=== PATIENT | male | born 1985 | race American Indian/Alaskan Native ===

== ENCOUNTER 2018-12-29 09:51 | Emergency (ER) | payer OTHER ==
[2018-12-29 09:58] VITALS: BP 181/93
--- NOTE | 2018-12-29 11:23 | Emergency Department Report ---
HPI - General Chief Complaint: Dental/Oral Time Seen by Provider: 12/29/18 11:20 - HPI HPI: This is a 33-year-old male patient complaining of dental pain and toothache located in the left side. Pain is 7-10 and achy. Denies any nausea or vomiting. Denies nasal congestion, cough, shortness of breath or chest pain. Denies any fever or chills. Denies any history of high blood pressure and his blood pressure is 183/93 and he reports because he is in pain. He states it is been taking [id number] Tylenol without any relief. Denies any cough. Denies any drainage or trauma. ED Past Medical Hx - Past Medical History Previous Medical History?: No - Surgical History Past Surgical History?: No - Family History Family history: hypertension - Social History Smoking Status: Never Smoker Substance Use Type: Marijuana - Medications Home Medications: Home Medications Medication Instructions Recorded Confirmed Last Taken Type Amoxicillin [Amoxicillin TAB] 875 mg PO BID 10 Days #20 tablet 12/29/18 Unknown Rx Ibuprofen [Motrin] 800 mg PO Q8HR PRN #12 tablet 12/29/18 Unknown Rx Neomy/Polymyx B/Hc (Otic) Soln 4 drops .ROUTE Q8H 7 Days #1 bottle 12/29/18 Unknown Rx [Cortisporin (Otic) Soln] ED Review of Systems ROS: Stated complaint: L EAR PAIN Other details as noted in HPI Constitutional: denies: chills, fever ENT: ear pain, dental pain. denies: throat pain, congestion Respiratory: denies: cough, shortness of breath, wheezing Gastrointestinal: denies: nausea, vomiting Musculoskeletal: denies: arthralgia Skin: denies: rash Neurological: denies: headache Physical Exam - Physical Exam Vital Signs: Vital Signs 12/29/18 09:55 Temperature 97.7 F Pulse Rate 83 Respiratory 18 Rate Blood Pressure 181/93 O2 Sat by Pulse 97 Oximetry General: This is a 33-year-old male well-nourished well-developed in no acute distress. Physical Exam: Head: Normocephalic atraumatic Ears:BIateral TM congested. Left EAC with redness and swollen. Left tragus tender to palpate. No mastoid bone tenderness. Mouth: Moist, no pharyngeal erythema or exudate . Tongue is normal and oral airways patent. Uvula is midline. No abscess noted but noted dental chu tooth #19 . Minimal tenderness to palpate around tooth #19 Lip is normal. Neck: Nontender to palpate, supple, normal range of motion. No adenopathy. No c- spine tenderness. Nose: Bilateral nasal mucosa normal exam maxillary and frontal sinuses non- tender to palpate. Eyes: Bilateral Sclerae and conjunctiva without injection. Bilateral pupils equal and reactive to light. Bilateral lids are normal. Normal accommodation.BEOMI Lungs: Clear to auscultate bilaterally, no rhonchi wheezes or rales. Normal work of breathing and no chest wall tenderness CV: S1, S2. Regular rate and rhythm negative murmur. Capillary refill is less than 3 seconds Extremity: No clubbing, cyanosis or edema. +2 pulses in all extremities and no neurovascular compromise Skin: Clean dry and intact, no rashes or lesions ED Course Vital Signs 12/29/18 09:55 Temperature 97.7 F Pulse Rate 83 Respiratory 18 Rate Blood Pressure 181/93 O2 Sat by Pulse 97 Oximetry Manual blood pressure is 142/84 - Reevaluation(s) Reevaluation #1: 12/29/18 12:22 Patient states throughout ED course ED Medical Decision Making - Medical Decision Making This is a 33-year-old male here for left toothache and left ear. He was signed to have otitis externa and toothache with dental caries. I will refer him to [facility] dental clinic and also cirrhosis outside [facility]. I discussed the patient's diagnosis and treatment plan and he voiced understanding. Patient discharged home on Corticosporin otic ,Motrin and amoxicillin. He stable and blood pressure is better. Critical care attestation.: If time is entered above; I have spent that time in minutes in the direct care of this critically ill patient, excluding procedure time. ED Disposition Clinical Impression: Tooth ache, Ear ache, Dental caries Otitis externa Qualifiers: Otitis externa type: unspecified type Chronicity: acute Laterality: left Qualified Code(s): H60.502 - Unspecified acute noninfective otitis externa, left ear Disposition: - TO HOME OR SELFCARE Is pt being admited?: No Does the pt Need Aspirin: No Condition: Stable Instructions: Dental Caries (ED), Otitis Externa (ED), Toothache (ED) Additional Instructions: follow up with dentist as instructed Take medication as prescribed Referrals: [facility] [Outside] - 3-5 Days [facility] [Outside] - 3-5 Days Forms: Work/School Release Form(ED)
== END 2018-12-29 11:30 | disposition home or self-care (01) ==
LOC: ED 09:51
DX: K02.9 Dental caries, unspecified (principal); H60.502 Unspecified acute noninfective otitis externa, left ear; F12.10 Cannabis abuse, uncomplicated
CPT/HCPCS: 99282

== ENCOUNTER 2020-07-16 11:51 | Emergency (ER) | payer SELFPAY ==
[2020-07-16 12:11] VITALS: BP 138/84
--- NOTE | 2020-07-16 12:45 | XRay Report ---
LEFT KNEE, AP AND LATERAL VIEWS INDICATION / CLINICAL INFORMATION: fall/injury. COMPARISON: None available. FINDINGS: BONES/JOINT(S): No acute fracture or subluxation. Small joint effusion noted. No focal bone lesions. SOFT TISSUES: No significant abnormality. ADDITIONAL FINDINGS: None. Signer Name: Kenn Martinez MD Signed: 07/16/2020 12:40 PM Workstation Name: [id number]
--- NOTE | 2020-07-16 13:59 | Emergency Department Report ---
ED General Adult HPI - General Chief complaint: Extremity Injury, Lower Stated complaint: POSS BROKEN LEG LEFT Time Seen by Provider: 07/16/20 13:25 Source: patient Mode of arrival: Ambulatory Limitations: No Limitations - History of Present Illness Initial comments: 35-year-old -[place] male patient presents with complaints of left knee pain after a slip and fall injury yesterday. 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 He rates his pain as a 10/10 in severity and states he has not been able to ambulate due to the pain. He denies any numbness/tingling/weakness in his limbs, redness, or penetrating injuries. - Related Data Previous Rx's Medication Instructions Recorded Last Taken Type Amoxicillin [Amoxicillin TAB] 875 mg PO BID 10 Days #20 tablet 12/29/18 Unknown Rx Ibuprofen [Motrin] 800 mg PO Q8HR PRN #12 tablet 12/29/18 Unknown Rx Neomy/Polymyx B/Hc (Otic) Soln 4 drops .ROUTE Q8H 7 Days #1 bottle 12/29/18 Unknown Rx [Cortisporin (Otic) Soln] Acetaminophen/Codeine [Tylenol 1 tab PO Q8H PRN #10 tab 07/16/20 Unknown Rx /Codeine # 3 tab] Diclofenac Sodium 50 mg PO TID PRN #21 tablet. 07/16/20 Unknown Rx Allergies Allergy/AdvReac Type Severity Reaction Status Date / Time No Known Allergies Allergy Unverified 12/29/18 09:53 ED Review of Systems ROS: Stated complaint: POSS BROKEN LEG LEFT Other details as noted in HPI Constitutional: denies: diaphoresis, fever, malaise Musculoskeletal: joint swelling, arthralgia Neurological: abnormal gait. denies: weakness, numbness, paresthesias Hematological/Lymphatic: denies: easy bleeding, easy bruising ED Past Medical Hx - Past Medical History Previous Medical History?: No - Surgical History Past Surgical History?: No - Social History Smoking Status: Current Every Day Smoker - Medications Home Medications: Home Medications Medication Instructions Recorded Confirmed Last Taken Type Amoxicillin [Amoxicillin TAB] 875 mg PO BID 10 Days #20 tablet 12/29/18 Unknown Rx Ibuprofen [Motrin] 800 mg PO Q8HR PRN #12 tablet 12/29/18 Unknown Rx Neomy/Polymyx B/Hc (Otic) Soln 4 drops .ROUTE Q8H 7 Days #1 bottle 12/29/18 Unknown Rx [Cortisporin (Otic) Soln] Acetaminophen/Codeine [Tylenol 1 tab PO Q8H PRN #10 tab 07/16/20 Unknown Rx /Codeine # 3 tab] Diclofenac Sodium 50 mg PO TID PRN #21 tablet. 07/16/20 Unknown Rx ED Physical Exam - General Limitations: No Limitations General appearance: alert, in no apparent distress - Head Head exam: Present: atraumatic - Eye Eye exam: Present: normal appearance - Neck Neck exam: Present: full ROM - Respiratory Respiratory exam: Absent: respiratory distress - Cardiovascular Cardiovascular Exam: Present: regular rate - Expanded Lower Extremity Exam Left Knee exam: Present: tenderness (Medial, lateral, and posterior tenderness to palpation;), swelling (Mild without warmth or overlying erythema noted). Absent: full ROM, deformity, dislocation Lower Leg exam: Present: normal inspection, full ROM Neuro vascular tendon exam: Absent: pulse deficit, sensory deficit, extremity cold to touch, pallor - Back Exam Back exam: Present: full ROM - Neurological Exam Neurological exam: Present: alert, oriented X3 - Psychiatric Psychiatric exam: Present: normal affect, normal mood - Skin Skin exam: Present: warm, dry, intact, normal color. Absent: rash ED Course Vital Signs 07/16/20 12:07 Temperature 98.4 F Pulse Rate 95 H Respiratory 18 Rate Blood Pressure 138/84 O2 Sat by Pulse 96 Oximetry ED Medical Decision Making - Radiology Data Radiology results: report reviewed LEFT KNEE, AP AND LATERAL VIEWS INDICATION / CLINICAL INFORMATION: fall/injury. COMPARISON: None available. FINDINGS: BONES/JOINT(S): No acute fracture or subluxation. Small joint effusion noted. No focal bone lesions. SOFT TISSUES: No significant abnormality. ADDITIONAL FINDINGS: None. - Medical Decision Making 35-year-old -[place] male patient presents with complaints of left knee pain after a slip and fall injury yesterday. 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 He rates his pain as a 10/10 in severity and states he has not been able to ambulate due to the pain. He denies any numbness/tingling/weakness in his limbs, redness, or penetrating injuries. X-ray is negative for any bony abnormalities. Will treat for knee sprain. Recommend follow-up with orthopedics. Patient provided with crutches and knee immobilizer. Rice method was discussed in detail. Strict return precautions were also discussed in detail with patient who verbalizes understanding. Critical care attestation.: If time is entered above; I have spent that time in minutes in the direct care of this critically ill patient, excluding procedure time. ED Disposition Clinical Impression: Left knee sprain Qualifiers: Encounter type: initial encounter Involved ligament of knee: other ligament Qualified Code(s): S83.8X2A - Sprain of other specified parts of left knee, initial encounter Disposition: TO HOME OR SELFCARE Is pt being admited?: No Condition: Stable Instructions: Knee Sprain (ED) Prescriptions: Diclofenac Sodium 50 mg PO TID PRN #21 tablet. PRN Reason: Pain, Moderate (4-6) Acetaminophen/Codeine [Tylenol /Codeine # 3 tab] 1 tab PO Q8H PRN #10 tab PRN Reason: Pain , Severe (7-10) Referrals: [facility] [Provider Group] - 3-5 Days
[2020-07-16] MEDS ORDERED: HYDROcodone/ACETAMINOPHEN 5-325 MG TAB PO ONE (14:11)
[2020-07-16] MEDS ORDERED: KETOROLAC 60 MG/2 ML INJ IM ONE (14:12)
== END 2020-07-16 14:39 | disposition home or self-care (01) ==
LOC: ED 11:51
DX: S83.8X2A Sprain of other specified parts of left knee, initial encounter (principal); F17.200 Nicotine dependence, unspecified, uncomplicated; Z79.899 Other long term (current) drug therapy; X58.XXXA Exposure to other specified factors, initial encounter; Y93.89 Activity, other specified; Y92.89 Other specified places as the place of occurrence of the external cause; Y99.8 Other external cause status
CPT/HCPCS: 29505; 73560; 96372; 99283; J1885